=== PATIENT | female | born 2000 | race Caucasian/White ===

== ENCOUNTER 2019-08-30 23:31 | Emergency (ER) | payer BC ==
[~2019-08-30] VITALS: Ht 175.3 cm; Wt 63.6 kg
[2019-08-30 23:53] VITALS: BP 134/77; PULSE 102; TEMP 97.9
== END 2019-08-31 00:36 | disposition left against medical advice (07) ==
LOC: COL.ER 23:31
DX: R11.10 Vomiting, unspecified (principal)